=== PATIENT | male | born 1990 | race Caucasian/White ===

== ENCOUNTER 2020-06-14 11:45 | Emergency (ER) | payer MEDICAID ==
[~2020-06-14] VITALS: Ht 182.9 cm; Wt 82.0 kg
[2020-06-14] MEDS ORDERED: METHYLPREDNISOLONE SOD SUCC 125 MG/2 ML VIAL IM ONE (13:00)
[2020-06-14] MEDS ORDERED: ACETAMINOPHEN WITH CODEINE 300/30MG TABLET PO ONE (13:00)
[2020-06-14 15:43] VITALS: BP 134/47
== END 2020-06-14 15:45 | disposition home or self-care (01) ==
LOC: ER 11:45
DX: S39.012A Strain of muscle, fascia and tendon of lower back, initial encounter (principal); M54.16 Radiculopathy, lumbar region; X58.XXXA Exposure to other specified factors, initial encounter; Y93.89 Activity, other specified; Y92.89 Other specified places as the place of occurrence of the external cause; Y99.8 Other external cause status
CPT/HCPCS: 72100; 96372; 99283; J2930

== ENCOUNTER 2025-11-19 06:51 | Emergency (ER) | payer BC, MEDICAID ==
[~2025-11-19] VITALS: Ht 177.8 cm; Wt 93.0 kg
[2025-11-19 07:12] VITALS: O2SAT 100
[2025-11-19 07:32] LABS: BASOPHILS % 0.6 % (0.0-2.0); EOSINOPHILS % 0.4 % (0.0-5.0); HEMATOCRIT. 45.4 % (42.0-52.0); HEMOGLOBIN. 15.9 g/dL (14.0-18.0); LYMPHOCYTES % 15.1 % (20.0-50.0); MEAN PLATELET VOLUME 9.1 fl (7.4-10.4); MONOCYTES % 6.7 % (2.0-8.0); NEUTROPHILS % 77.2 % (40.0-76.0); PLATELET 274 x1000/uL (130-400); RED BLOOD CELL COUNT 5.28 mill/uL (4.7-6.1); RED CELL DISTRIBUTION WIDTH 12.5 % (11.6-14.6)
[2025-11-19 07:44] LABS: CREATININE 0.9 mg/dL (0.6-1.3); UREA NITROGEN BLOOD 7 mg/dL (9-23)
[2025-11-19 09:14] LABS: PROTEIN TOTAL 7.3 g/dL (6.0-8.3)
[2025-11-19 09:15] LABS: ASPARTATE AMINOTRANSFERASE 67 IU/L (<34); TROPONIN I HIGH SENSITIVITY < 4 ng/L (3.0-53)
[2025-11-19 09:16] LABS: BILIRUBIN DIRECT 0.1 mg/dL (<=3.0); BILIRUBIN TOTAL 0.6 mg/dL (0.1-1.0)
[2025-11-19 10:37] VITALS: BP 122/78; PULSE 77; RESP 16; TEMP 36.7; O2SAT 100
== END 2025-11-19 14:43 | disposition home or self-care (01) ==
LOC: ER 06:51
DX: R51.9 Headache, unspecified (principal); D72.829 Elevated white blood cell count, unspecified; Z79.899 Other long term (current) drug therapy
CPT/HCPCS: 36415; 71045; 76604; 80048; 80076; 84484; 85025; 93005; 93880; 99285